=== PATIENT | male | born 1940 | race Caucasian/White ===

== ENCOUNTER → 2020-04-10 | Outpatient (CLI) | payer MEDICARE, OTHER ==
[~2020-04-10] MED LIST: AMLO5TAB10 PO; ASPI-630 PO; CARV6.2541 PO; CHOL500021 PO; LISI-334 PO; METF10007 PO; OMEG-32 PO; SITA100T PO; TAMS0.4C97 PO
== END | disposition home or self-care (01) ==
LOC: LAB 07:39
PROVIDERS: ATTEND Registered Nurse
DX: Z20.828 Contact with and (suspected) exposure to other viral communicable diseases (principal)
CPT/HCPCS: U0003-CS

== ENCOUNTER → 2020-04-14 | Day surgery (SDC) | payer MEDICARE, OTHER ==
[~2020-04-14] MED LIST changes: +IPRATRPIUM/ALBUTEROL 0.5/2.5MG 3 ML NEBU. NEB PRN; +IV RINGERS SOLUTION,LACTATED 1,000 ML IV SCH; +MIDAZOLAM HCL PF 2 MG/2 ML VIAL. IV ONE; +ONDANSETRON PF 4 MG/2 ML VIAL. IV PRN; +PROPOFOL 10,000 MCG/ML (20ML) VIAL IV ONE
[2020-04-14 11:04] VITALS: BP 155/80
--- NOTE | 2020-04-15 16:07 | PATHOLOGY ---
[facility] Accession Number: [id number] . 01 Material submitted: . PART A: sigmoid colon - SIGMOID POLYP X4 PART B: cecum - CECAL POLYP PART C: colon - ASCENDING POLYP X5. Modifiers: ascending PART D: colon - TRANSVERSE POLYP BX. Modifiers: transverse PART E: colon - DESCENDING POLYP. Modifiers: descending . 02 Diagnosis: A. Colon biopsies, sigmoid colon polyps: - Tubular adenomas. - Vegetable material. . B. Colon biopsies, cecal polyp: - Tubular adenoma. . C. Colon biopsies, ascending colon polyps x5: - Tubular adenomas. . D. Colon biopsy, transverse colon polyp: - Tubular adenoma. . E. Colon biopsies, descending colon polyps: - Tubular adenomas. - Vegetable material. . (JPM:dolores; 04/15/2020) [facility] 04/15/2020 1340 Local . 02 Comment: There is no high grade dysplasia or evidence of malignancy. (ROBBM:dolores; 04/15/2020) . 02 Electronically signed: . Chase Jarrett MD, Pathologist NPI- [id number] . 01 Gross description: . A. The specimen is received in formalin, labeled "Elder Zupancic, sigmoid polyp". Received is a moderate amount of yellow-armijo vegetative material admixed with pale armijo soft tissue measuring 2.8 x 1.5 x 0.2 cm in aggregate dimensions. The specimen is filtered and entirely submitted in cassette A1. . B. The specimen is received in formalin, labeled "Elder Zupancic, cecal polyp". Received are three segments of pale armijo soft tissue ranging in size from 0.2 to 0.6 cm in maximum dimensions. The specimen is submitted entirely in cassette B1. . C. The specimen is received in formalin, labeled "Elder Zupancic, ascending polyp x5". Received are multiple segments of pale armijo soft tissue ranging in size from 0.3 to 0.5 cm in maximum dimensions. The specimen is submitted entirely in cassette C1. . D. The specimen is received in formalin, labeled "Elder Zupancic, transverse polyp". Received is a segment of pale armijo soft tissue measuring 0.6 cm in maximum dimensions. The specimen is submitted entirely in cassette D1. . E. The specimen is received in formalin, labeled "Elder Zupancic, descending polyp x2". Received are multiple fragments of yellow-armijo vegetative material admixed with possible soft tissue measuring 2.0 x 1.1 x 0.2 cm in aggregate dimensions. The specimen is filtered and entirely submitted in cassette E1. ([facility]; 04/14/2020) QAC/QAC 04/14/2020 1826 Local . 02 Pathologist provided ICD-10: D12.5, D12.0, D12.2, D12.3, D12.4 . 02 CPT . 443587, [id number], 870488, [id number], [id number] Specimen Comment: A courtesy copy of this report has been sent to [phone], [phone]- Specimen Comment: [id number] Specimen Comment: Report sent to / DR MCCARTY Performed at: 01 [facility] [address] [facility] [address], [place] [id number] MD Ketan García MD Phone: [phone] Performed at: [facility] [address] [place], [place] [id number] MD Chase Jarrett MD Phone: [phone]
== END | disposition home or self-care (01) ==
LOC: SURG 08:03
PROVIDERS: ATTEND Internal Medicine Gastroenterology
DX: K92.1 Melena (principal); D12.3 Benign neoplasm of transverse colon; D12.0 Benign neoplasm of cecum; D12.5 Benign neoplasm of sigmoid colon; D12.2 Benign neoplasm of ascending colon; D12.4 Benign neoplasm of descending colon; K64.8 Other hemorrhoids; I10 Essential (primary) hypertension; G47.33 Obstructive sleep apnea (adult) (pediatric); E11.9 Type 2 diabetes mellitus without complications; Z79.84 Long term (current) use of oral hypoglycemic drugs; Z87.891 Personal history of nicotine dependence; Z79.899 Other long term (current) drug therapy; Z86.73 Personal history of transient ischemic attack (TIA), and cerebral infarction without residual deficits; Z98.890 Other specified postprocedural states; Z79.82 Long term (current) use of aspirin
CPT/HCPCS: 45385; 82947; 88305; J2704; J7120